=== PATIENT | male | born 2000 | race African-American/Black ===

== ENCOUNTER 2023-03-27 09:15 | Emergency (ER) | payer MEDICAID, OTHER ==
[~2023-03-27] VITALS: Ht 180.3 cm; Wt 75.2 kg
[2023-03-27 10:18] VITALS: BP 117/78; PULSE 72; RESP 18; TEMP 98.3; O2SAT 100
[2023-03-27] MEDS ORDERED: KETOROLAC TROMETH 60MG/2ML VIAL IM ONE (10:30)
[2023-03-27] MEDS ORDERED: IBUP-1456 PO (10:53)
[2023-03-27] MEDS ORDERED: METH-1182 PO (10:53)
== END 2023-03-27 11:01 | disposition home or self-care (01) ==
LOC: ER 09:15
DX: S16.1XXA Strain of muscle, fascia and tendon at neck level, initial encounter (principal); S20.219A Contusion of unspecified front wall of thorax, initial encounter; Z79.1 Long term (current) use of non-steroidal anti-inflammatories (NSAID); Z79.899 Other long term (current) drug therapy; V43.52XA Car driver injured in collision with other type car in traffic accident, initial encounter; Y93.89 Activity, other specified; Y92.410 Unspecified street and highway as the place of occurrence of the external cause; Y99.8 Other external cause status
CPT/HCPCS: 71046; 72040; 96372; 99284; J1885